=== PATIENT | male | born 1950 | race Caucasian/White ===

== ENCOUNTER 2016-10-24 10:15 | Emergency (ER) | payer MEDICARE, OTHER ==
[~2016-10-24] VITALS: Ht 177.8 cm; Wt 85.5 kg
[2016-10-24 10:21] VITALS: BP 211/103; PULSE 69; RESP 20; O2SAT 99
--- NOTE | 2016-10-24 10:37 | ED.REPORT ---
HPI-Extremity Problem Lower Date of Service Oct 24, 2016 ED Provider: Dr. Barnhart Pt is a 66 y/o male w/ a hx of HTN, MS, presenting to the ED c/o LLE swelling onset today. The patient scraped the posterior aspect of his left calf 3 days ago while walking down stairs. He states he does normally have some baseline asymmetrical edema of his leg and wears compression stockings and takes "medications" to decrease some of the edema. Pt denies numbness or weakness, any other complaints/concerns. He hasn't taken his BP meds yet today. Nursing Notes Stated Complaint: CUT TO LEFT LOWER LEG Chief Complaint: Extremity Trauma Nursing Notes Reviewed: Yes Allergies: Coded Allergies: No Known Allergies (Unverified Allergy, Unknown, 10/24/16) Scheduled Cephalexin (Keflex) 500 Mg Capsule 500 MG PO QID General Time Seen by MD: 10:37 Chief Complaint Other (LLE swelling) Hx Obtained From: Patient Arrived By: Walk-in Onset Occurred: 5 - 8 hours ago Symptom Duration: Since onset Severity: Current: No pain currently Severity: Maximum: No pain Similar Sx Previous: No Past Medical History Past Medical History Hypertension MS Past Surgical History None reported Smoking History Former Smoker Social History Alcohol Use: Denies alcohol use Drug Use: Denies drug use Ambulatory Status Independent Review of Systems Musculoskeletal: Reports: Extremity swelling, Denies: Extremity pain Neurologic: Denies: Numbness, Weakness Complete sys rev & neg: except as marked. Physical Exam Initial Vital Signs Vital Signs (First) Date Time Temp Pulse Resp B/P Pulse Ox O2 Delivery O2 Flow Rate FiO2 10/24/16 10:21 36.4 69 20 211/103 99 Room Air Initial VS: Reviewed, Vital signs abnormal Head / Eyes: Atraumatic, Normocephalic ENT: Mucous membranes moist, Conjunctiva normal Neck: Full range of motion Respiratory: Breath sounds normal, Clear to auscultation, No respiratory distress Cardiovascular: Regular rate & rhythm, Heart sounds normal, Intact distal pulses Abdomen / GI: No distention Upper Extremities: Vascular intact, Neuro intact, No swelling Skin: Warm, Dry, No cyanosis Neurologic: Alert, Oriented, Nonfocal Psychiatric: Mood/affect normal, Behavior normal, Normal thought content Lower Extremity / Pelvis / MS: Full range of motion, No deformity, Neurologic intact, Vascular intact, No ligamentous injury, Tendon function NL, Pelvis stable LLE: 2 superficial abrasions to the back of the calf with mild superficial purulent drainage. No erythema, fluctuance, surrounding erythema Ankle / Foot: No deformity, Neurologic intact Re-Eval/Medical Decision Re-Evaluation/Progress : Time of Eval: 10:50 Re-Evaluation/Progress Note: Pt rechecked. Informed pt of plan for discharge. Pt understands and agrees with plan for discharge. F/U instructions and RTER warnings given. All questions addressed. Counseled Regarding: Diagnosis, Need for follow-up, When/why to return to ED Discharge & Departure Impression: Primary Impression: Abrasion Additional Impression: Hypertension Hypertension type: essential hypertension Qualified Code: I10 - Essential ( primary) hypertension Disposition: Home Discharge Condition All VS Reviewed: Yes Condition: Stable Additional Instructions: Take Keflex as prescribed. Follow-up with regular doctor in the next 2 days. Avoid soaking the wound. Keep it clean and covered with antibiotic ointment and a clean bandage. Return to the ER as needed for worsening symptoms. Also your blood pressure was elevated. Be sure to take your blood pressure medication regularly. Referrals: OTHER,PHYSICIAN (PCP) (Family) Scribe Attestation Portions of this note were transcribed by Rl Minaya. I, Dr. Barnhart personally performed the history, physical exam and medical decision-making; I reviewed and confirmed the accuracy of the information in the transcribed note. Noah Barnhart DO Oct 24, 2016 10:37 RL MINAYA Oct 24, 2016 10:44 RL MINAYA Oct 24, 2016 10:44
[2016-10-24] MEDS ORDERED: CEPH-512 PO (10:42)
[2016-10-24 11:30] VITALS: BP 185/90; PULSE 64; RESP 15; O2SAT 99
== END 2016-10-24 11:31 | disposition home or self-care (01) ==
LOC: SED 10:15
DX: S80.812A Abrasion, left lower leg, initial encounter (principal); I10 Essential (primary) hypertension; W22.09XA Striking against other stationary object, initial encounter; Y93.01 Activity, walking, marching and hiking; Y99.8 Other external cause status; Y92.89 Other specified places as the place of occurrence of the external cause; Z87.891 Personal history of nicotine dependence; Z86.69 Personal history of other diseases of the nervous system and sense organs

== ENCOUNTER 2016-10-28 10:39 | Inpatient (IN) | payer MEDICARE, OTHER ==
[~2016-10-28] VITALS: Ht 177.8 cm; Wt 80.4 kg
[~2016-10-28 10:39] MED LIST: CEPH-512 PO
[2016-10-28 10:42] VITALS: BP 178/101; PULSE 63; RESP 16; O2SAT 100
--- NOTE | 2016-10-28 10:54 | ED.REPORT ---
HPI-Extremity Problem Lower Date of Service Oct 28, 2016 ED Provider: Rodolfo Tran Patient is a 66 year old male with a hx of HTN and MS who presents to the ED for evaluation of an abrasion on his left leg onset 4 days ago. Associated symptoms include increasing redness and swelling. He was seen in the department 4 days ago for his injury. The original injury occurred when he turned on his outdoor stairs, scraping his leg. He denies chest pain, SOB, fevers, nausea, vomiting, or any other symptoms. He has been on Amoxicillin and Keflex for 4 days. Nursing Notes Stated Complaint: CUT ON LEFT LEG Chief Complaint: Extremity Trauma Nursing Notes Reviewed: Yes Allergies: Coded Allergies: No Known Allergies (Unverified Allergy, Unknown, 10/28/16) Scheduled Amlodipine (Amlodipine) 10 Mg Tablet 10 MG PO DAILY Atenolol (Atenolol) 100 Mg Tablet 100 MG PO DAILY Baclofen (Baclofen) 10 Mg Tablet 10 MG PO HS Baclofen (Baclofen) 10 Mg Tablet 20 MG PO BIDBL Calcium Carbonate/Vitamin D3 (Calcium 250+D Tablet) 1 Each Tablet 2 EACH PO BID Cephalexin (Cephalexin) 250 Mg Tablet 250 MG PO QID Chlorhexidine Gluconate (Chlorhexidine Gluconate) 473 Ml Mouthwash 1 DOSE S& SPIT DAILY Cholecalciferol (Vitamin D3) (Vitamin D3) 2,000 Unit Capsule 2,000 UNIT PO DAILY Desonide (Desonide Cream) 15 Gm Cream..g. 1 APPLIC TOP DAILY Divalproex ER (Divalproex ER) 500 Mg Tab.er.24h 500 MG PO BID Doxazosin Mesylate (Doxazosin Mesylate) 4 Mg Tablet 4 MG PO HS Interferon Beta-1A (Avonex) 60 Mcg/1 Ml Syringe 125 MCG SC [id number] Lisinopril (Lisinopril) 40 Mg Tablet 40 MG PO DAILY Sennosides (Senna) 8.6 Mg Tablet 8.6 MG PO BID Scheduled PRN Indomethacin (Indomethacin) 25 Mg Capsule 25 MG PO TID PRN PRN gout Sildenafil Citrate (Viagra) 100 Mg Tablet 100 MG PO UD PRN PRN for sexual activity Tolnaftate (Tolnaftate) 1 Gm Powder 1 APPLIC TOP BID PRN PRN rash General Time Seen by MD: 10:54 Chief Complaint Leg injury left Hx Obtained From: Patient Arrived By: Walk-in Onset Occurred: 4 days ago Caused by: Slipped Location: : Leg left Quality: Painful Severity: Current: Moderate Severity: Maximum: Moderate Immunizations: Unknown Recent Healthcare: Recent doctor visit Similar Sx Previous: Yes Past Medical History Past Medical History Hypertension MS BPH gout seizures Reports: Hyperlipidemia Past Surgical History None reported Smoking History Former Smoker Social History Alcohol Use: Denies alcohol use Drug Use: Denies drug use Ambulatory Status Independent Review of Systems Review of Systems Note: +redness Constitutional: Denies: Fever Musculoskeletal: Reports: Extremity pain, Extremity swelling Complete sys rev & neg: except as marked. Respiratory: Denies: Shortness of breath Cardiovascular: Denies: Chest pain GI: Denies: Nausea, Vomiting Physical Exam Initial Vital Signs Vital Signs (First) Date Time Temp Pulse Resp B/P Pulse Ox O2 Delivery O2 Flow Rate FiO2 10/28/16 10:42 36.5 63 16 178/101 100 Room Air Initial VS: Reviewed, Vital signs normal Head / Eyes: Atraumatic, Normocephalic Neck: Full range of motion Respiratory: No respiratory distress Cardiovascular: Intact distal pulses Neurologic: Alert, Oriented, Nonfocal Lower Extremity / Pelvis / MS: Neurologic intact, Vascular intact Left Leg / Calf: Positive: Swelling present... Ankle / Foot: Neurologic intact, Vascular intact Lower Ext Edema: Positive: Left 2+, Pitting Skin: Warm, Dry Rash / Lesion Notes: 2, 1 cm abrasions to the L posterior calf with surrounding, diffuse erythema Interpretation & Diagnostics Lab Results Interpretation Result Diagram: 10/28/16 1145 10/28/16 1145 Test 10/28/16 11:45 White Blood Count 4.2th/mm3 (3.8-10.1) Red Blood Count 4.67mil/mm3 (4.40-5.80) Hemoglobin 14.6g/dL (13.8-17.2) Hematocrit 42.5% (41.0-50.0) Mean Corpuscular Volume 91.0fL (81-100) Mean Corpuscular Hemoglobin 31.3pg (27.0-35.0) Mean Corpuscular Hemoglobin Concent 34.4% (32.0-37.0) Red Cell Distribution Width 12.6% (12.3-15.4) Platelet Count 158bil/L (150-400) Neutrophils (%) (Auto) 66.4% (40-74) Lymphocytes (%) (Auto) 22.8% (14-46) Monocytes (%) (Auto) 8.9% (4-12) Eosinophils (%) (Auto) 1.2% (0-5) Basophils (%) (Auto) 0.2% (0-3) Sodium Level 141mEq/L (134-144) Potassium Level 4.7mEq/L (3.5-5.2) Chloride Level 104mEq/L (97-108) Carbon Dioxide Level 25mmol/L (18-29) Blood Urea Nitrogen 14mg/dL (8-27) Creatinine 0.66mg/dL (0.76-1.27) Estimat Glomerular Filtration Rate 129mL/min (>59) Glucose Level 80mg/dL (60-99) Calcium Level 9.4mg/dL (8.5-10.1) Total Bilirubin 0.3mg/dL (0.0-1.2) Aspartate Amino Transf (AST/SGOT) 15U/L (0-50) Alanine Aminotransferase (ALT/SGPT) 14U/L (0-44) Alkaline Phosphatase 82U/L (25-160) Total Protein 7.7g/dL (6.4-8.4) Albumin 3.8g/dL (3.4-5.0) Procalcitonin 0.03ng/mL (0.00-0.08) Re-Eval/Medical Decision Med Decision/Clinical Course 66-year-old male with left lower extremity swelling and redness 3 days. Ultrasound confirms extensive DVT left lower extremity. It involves the iliac vein. It is obstructive in the common femoral. It extends down the popliteal. Discussed with interventional cardiology will see the patient for possible thrombolysis. Patient was started on a heparin drip. No chest pain or difficulty breathing. Re-Evaluation/Progress : Time of Eval: 12:45 Re-Evaluation/Progress Note: Discussed plan for admission. Patient understands and agrees with plan. All questions addressed at this time. Consultation #1: Referral / Consult Name: Drew Amador MD Consulted With: Cardiology Call Returned at: 12:41 Jewelry Technician: Will see patient Note: Discussed pt's case with Perry's assistants who report he will see the pt. Consultation #2: Referral / Consult Name: Smith Jiménez MD Consulted With: Hospitalist Call Returned at: 13:12 Jewelry Technician: Will see patient, Agrees with eval, Agrees with plan, Accepts admit Note: Discussed pt's case. Accepts admit. Counseled Regarding: Diagnosis, Lab results, Need for admission Discharge & Departure Impression: Primary Impression: DVT (deep venous thrombosis) DVT location: lower extremity Affected thrombotic vein of extremity: unspecified vein of extremity Laterality: left Chronicity: acute Qualified Code: I82.402 - Acute embolism and thrombosis of unspecified deep veins of left lower extremity Additional Impression: Cellulitis Site of cellulitis: extremity Site of cellulitis of extremity: lower extremity Laterality: left Qualified Code: L03.116 - Cellulitis of left lower limb Disposition: ADMITTED TO HOSPITAL Discharge Condition All VS Reviewed: Yes Condition: Stable Referrals: [facility] Crit Care Except Billable Proc Time Spent: 75-104 minutes (80) Services Performed: Patient management by me, Time spent at bedside, Reviewing test results, Reviewing imaging, Discussing patient care, Documentation in record Critical Care Notes: 80 minutes Primitivoibe Attestation Portions of this note were transcribed by Carly Dickey. I, Dr. Tran personally performed the history, physical exam and medical decision-making; I reviewed and confirmed the accuracy of the information in the transcribed note. Signed by: Spencer Main, 10/28/16 copies to: [employer] oRdolfo Tran MD Oct 28, 2016 10:54 CARLY DICKEY Oct 28, 2016 11:40
[2016-10-28 11:55] LABS: BASOPHILS % (AUTO) 0.2 % (0-3); EOSINOPHILS % (AUTO) 1.2 % (0-5); MONOCYTES % (AUTO) 8.9 % (4-12); Mean Corpuscular Hemoglobin 31.3 pg (27.0-35.0); NEUTROPHILS % (AUTO) 66.4 % (40-74); Platelet Count 158 bil/L (150-400)
[2016-10-28] MEDS ORDERED: Alum-Mag Hydrox-Simeth 30 mL Suspension PO PRN ×2 (13:15→13:50)
[2016-10-28] MEDS ORDERED: Heparin 5,000 Unit/mL Inj IVPUSH ONE (13:15)
[2016-10-28] MEDS ORDERED: Ondansetron 2 mg/mL 2 mL Inj IVPUSH PRN ×2 (13:15→13:50)
[2016-10-28] MEDS ORDERED: Heparin 25K Unit/500mL 0.45 NS 25,000 UNIT in IV Premix 1 EACH IV ONE (13:15)
[2016-10-28] MEDS ORDERED: Vancomycin Dose per Pharmacist XX ONE (13:20)
[2016-10-28] MEDS ORDERED: AMLO10TA3 PO (13:21)
[2016-10-28] MEDS ORDERED: BACL10TA PO ×2 (13:21)
[2016-10-28] MEDS ORDERED: ATEN100T PO (13:21)
[2016-10-28] MEDS ORDERED: Vancomycin Inj 1,750 MG in 0.9% Sodium Chloride 500 ML IV ONE (13:28)
[2016-10-28] MEDS ORDERED: TOLN1POW TOP (13:30)
[2016-10-28] MEDS ORDERED: DOXA4TAB3 PO (13:30)
[2016-10-28] MEDS ORDERED: INDO25CA PO (13:30)
[2016-10-28] MEDS ORDERED: CALC-235 PO (13:30)
[2016-10-28] MEDS ORDERED: LISI40TA PO (13:30)
[2016-10-28] MEDS ORDERED: CHOL200047 PO (13:30)
[2016-10-28] MEDS ORDERED: DESO15CR25 TOP (13:30)
[2016-10-28] MEDS ORDERED: CHLO473M13 S&SPIT (13:30)
[2016-10-28] MEDS ORDERED: INTE30SY SC (13:30)
[2016-10-28] MEDS ORDERED: SENN-133 PO (13:42)
[2016-10-28] MEDS ORDERED: SILD100T PO (13:42)
[2016-10-28] MEDS ORDERED: CEPH250T PO (13:46)
[2016-10-28] MEDS ORDERED: fentaNYL-PF 50 mCg/mL 2 mL Inj IV PRN (13:50)
[2016-10-28] MEDS ORDERED: Polyethylene Glycol (PEG) 17 Gm Powder PO PRN (13:50)
[2016-10-28] MEDS ORDERED: Heparin 5,000 Unit/mL Inj IVPUSH PRN (13:50)
[2016-10-28 14:23] VITALS: BP 156/67; PULSE 73; RESP 20; O2SAT 98
[2016-10-28 14:26] LABS: APPEARANCE,URINE HAZY (CLEAR,HAZY); COLOR,URINE STRAW (YELLOW); OCCULT BLOOD,URINE NEGATIVE (NEGATIVE); PH,URINE 7.5 (5.0-8.0); UROBILINOGEN,URINE NORMAL (NORMAL)
--- NOTE | 2016-10-28 14:46 | NUR ---
Admit nurse note Admission assessment completed in the ER. Pt. c/o irritation around lesions on his posterior lower left calf. The dressing he came in with was removed by ER staff and the lesion has been left open to air, causing concern for the pt. community dietitian in to assess pt. [facility] history obtained via [facility]; however, it is unclear whether pt. is taking his depakote anymore. [facility] and also asked for living [facility]. NKA verified. Report called to Luda Edwards.
[2016-10-28 14:53] VITALS: BP 154/80; PULSE 64; RESP 16; O2SAT 96
[2016-10-28 15:00] VITALS: PULSE 65
--- NOTE | 2016-10-28 15:10 | NUR ---
Verbal Education Pt. states he cannot read anymore due to effects of MS and would benefit from verbal instruction. He lives alone and does not have anybody living with him or caring for him to read instructions for him.
[2016-10-28] MEDS ORDERED: DIVA500T14 PO (15:12)
--- NOTE | 2016-10-28 15:52 | DRSVH ---
PROCEDURE: US VEINOUS LEG DUPLEX UNILATERAL, LEFT INDICATIONS: r/o dvt LLE TECHNIQUE: Real-time imaging, as well as color and pulse Doppler interrogation, were performed of the lower extr emity deep veins from the inguinal ligament to the popliteal fossa. COMPARISON: None. FINDINGS: Extensive occlusive left lower extremity deep venous thrombosis present extending from the iliac vein through the distal superficial femoral vein. Trace flow seen within the popliteal vein. One of the paired posterior tibial veins is patent. IMPRESSION: Extensive occlusive left lower extremity deep venous thrombosis as above. Dr. Jeffery Cabrera given results by the assembly inspector at 1300 hrs. 10/28/2016. Dictated by: Mj FELIX Interpreted: Hope Connelly MD on 10/28/2016 at 13:31 Approved by: Hope Connelly M.D. on 10/28/2016 at 15:50
--- NOTE | 2016-10-28 16:47 | PCM.HPMED ---
Subjective Date of Service Oct 28, 2016 Primary Provider: Admitting Physician: Smith Jiménez MD Primary Care Physician: [facility] Attending Physician: Smith Jiménez MD Admit Status: From the Emergency Department Chief Complaint: Leg swelling History of Present Illness: Bruno Kohler is a 66-year-old man with past medical history significant for MS, hypertension and hyperlipidemia who presents with acute left leg swelling. The patient states that he was at his normal [place] appointment for his regular biweekly injection of Avonex for his multiple sclerosis when his nurse noticed his swollen left leg and asked him to come to the [facility]. The patient states that approximately 1 week ago he scraped the back of his leg however he had noticed no pain, drainage or any other concerning issues. The patient states that approximately 10 days ago he went on a long drive through the [facility] looking for wildlife where he was in the car all day long. The patient denies any recent surgical history. The patient has never had a blood clot before. The patient denies any fever or chills, worsening left leg pain, changing sensation, decreased weakness in his left leg. The patient was recently started on Keflex for what was initially thought to be cellulitis due to the overlying redness and warmth. The patient states that his lower extremities at baseline have decreased sensation with decreased strength and ability to ambulate due to his MS. His MS is also affected his speech. Review of Systems: A comprehensive review of systems was obtained and all are negative except for what is included in the history of present illness. Allergies Coded Allergies: No Known Allergies (Unverified Allergy, Unknown, 10/28/16) Home Medications Amlodipine 10 MG PO DAILY Atenolol 100 MG PO DAILY Baclofen 10 MG PO HS Baclofen 20 MG PO BIDBL Calcium Carbonate/Vitamin D3 2 EACH PO BID Cephalexin 250 MG PO QID Chlorhexidine Gluconate 1 DOSE S&SPIT DAILY Cholecalciferol 2,000 UNIT PO DAILY Desonide 1 APPLIC TOP DAILY Divalproex ER 500 MG PO BID Doxazosin Mesylate 4 MG PO HS Interferon Beta-1A 125 MCG SC [id number] Lisinopril 40 MG PO DAILY Sennosides 8.6 MG PO BID Indomethacin 25 MG PO TID PRN PRN gout Sildenafil Citrate 100 MG PO PRN for sexual activity Tolnaftate 1 APPLIC TOP BID PRN rash PMH Hypertension Multiple sclerosis Benign prostatic hypertrophy Gout Hyperlipidemia History of seizures in teens and early 20s none for over 40 years Surgical History Bilateral cataracts Broken left leg no metal hardware required Family History Father at 63 years old from a heart attack Mother is alive at 84 years old reportedly healthy Brother had peripheral arterial disease in his 60s No family history of cancer Social History Occupation: retired due to MS Hx Alcohol Use: Yes (1 beer) Hx Substance Use: Yes (marijuana daily) Hx Tobacco Use: Yes Smoking Status: Former Smoker Years of Smokin Living Arrangement: Alone Exam Vital Signs Vital Sign - Last Date Time Temp Pulse Resp B/P Pulse Ox O2 Delivery O2 Flow Rate FiO2 10/28/16 15:00 65 10/28/16 14:53 36.5 16 154/80 96 Room Air Exam General: Normal body habitus middle-aged man in no acute distress lying comfortably in bed alert and oriented Eyes: Pupils equal round and reactive to light, extraocular motion intact, anicteric sclera, noninjected conjunctiva HENT: Normocephalic atraumatic, moist mucous membranes without central cyanosis , oropharynx clear without purulent exudate or cobblestoning mucosa Neck: Supple, trachea midline, without thyromegaly or JVD Cardiovascular: Regular rate and regular rhythm, no S3-S4, without murmurs rubs or gallops noted Lungs: Clear to auscultation bilaterally without wheezing rales or rhonchi Abdomen: Soft, nontender, nondistended, tympanic to percussion, normal active bowel sounds, without organomegaly Extremities: Left lower extremity is notably enlarged with gross moderate pitting edema as well as increased warmth and erythema, pulses intact and posterior tibialis and dorsalis pedis, right lower extremity without pitting edema or skin color changes : No Cortez catheter in place Skin: Warm and dry, left lower posterior extremity has 2 ulcerations the larger being approximately 2 cm without purulent drainage or fluctuance Neuro: Nonfocal neurologic exam, sensation intact in extremities Psych: Normal mood and affect Lab and Diagnostics Result Diagram: 10/28/16 1145 10/28/16 1145 X-Rays, CTs and MRIs US VEINOUS LEG DUPLEX UNILATERAL, LEFT IMPRESSION: Extensive occlusive left lower extremity deep venous thrombosis as above. Dr. Jeffery Cabrera given results by the senior ui software engineer at 1300 hrs. 10/28/2016. Approved by: Hope Connelly M.D. on 10/28/2016 at 15:50 Assessment & Plan Bruno Kohler is a 66-year-old man with past medical history significant for MS, hypertension and hyperlipidemia who presents with acute left leg swelling. Acute left leg deep vein thromboses - Patient describes an all day road trip through the [facility] 10 days ago - Denies any family history of DVTs, his brother has a history of PAD - Extensive occlusive left lower extremity deep venous thrombosis present extending from the iliac vein through the distal superficial femoral vein. - Heparin drip initiated in the ED - This case was discussed extensively with interventionalist Dr. Amador will take the patient for EKOS procedure in the morning - Vicodin available when necessary for pain - Nothing by mouth after midnight for because procedure Acute left leg abrasion - Patient describes scraping the back of his leg in his house approximately 1 week ago - Patient denies any fever or chills - Patient was initially started on vancomycin in the ED - White blood cell count of 4.2 with negative pro-calcitonin and consistent with infection - Vancomycin will be discontinued due to negative white blood cell count and pro -calcitonin and DVT to explain swelling and erythema, likely delayed healing due to DVT - Wound care consult placed - Bactroban available Chronic hypertension - Patient to be started on his home medications including amlodipine and atenolol - Currently holding lisinopril given likely contrast necessary for EKOS procedure Chronic benign prostatic hypertrophy - Restart patient's home doxazosin Chronic multiple sclerosis - Continue patient's baclofen - Patient may resume his Avonex [facility] infusions on discharge Chronic gout - Patient describes a recent left lower extremity flare - Holding indomethacin given likely contrast necessary for any gross procedure - Vicodin available GI prophylaxis: Famotidine CODE STATUS is full The patient is admitted to inpatient status given presenting symptoms, likely diagnosis, possible complications, and required treatment expected length of stay is greater than 2 midnights. Pain Evaluation: Adequate Pain Control GI Prophylaxis: H2 vonnie VTE Prophylaxis Indicated: Meets Criteria for Anticoag Therapy (heparin drip) VTE Prophylaxis: Other Resuscitation Status: CPR: Attempt Resuscitation Attending Statement The patient was seen and examined together with Dr. Nguyễn on 10/28/2016 and I agree with the history, exam and plan as outlined in the note above. . Rufus Nguyễn DO Oct 28, 2016 16:47 Smith Jiménez MD Oct 30, 2016 17:34
--- NOTE | 2016-10-28 18:00 | NUR ---
CCU to PCC Pt transferred to [facility], report taken from Luda Gilman. Care plan on board, pt aware of NPO after midnight, VSS, family at bedside. Dinner ordered. Care continues.
[2016-10-28] MEDS: HYDROcodone-APAP 5-325 mg Tablet PO PRN (18:26)
--- NOTE | 2016-10-28 18:41 | NUR ---
Memory Pt states he has "memory deficits due to MS", apologizes when he forgets. Pt appropriate with care, pt also states he "often times pauses while searching for words". Per family pt gets frustrated with self when people fill in the gap. Pt appreciates notes on white board for reminders. Care continues.
--- NOTE | 2016-10-28 18:45 | NUR ---
Wound Care Wound orders received patient seen in ED room D prior to his transfer to [facility]. Admitted with cellulitis of left leg has been treated by [facility] for care of his left leg ulcers and MS Patient presents with two likely venous stasis ulcers at the posterior left leg both measuring approximately 3cm w x 2 cm L x 0.3 cm D, appears to have had an alginate dressing on at admit which shows no drainage on it whatsoever, wound beds are 75% fibrinous and there is no undermining or tunneling noted. Of note patient appears to have been treated for athletes foot on his left with an unknown powder caked between his toes, this was investigated and no fissures that might act as a nidus for his cellulitis could be identified. Skin is markedly hyperkeratotic at his arch, met heads plantarly and his web spaces. Recommend mepilex foam dressings for now over his posterior calf ulcers, will get him into some kind of compression tomorrow like a tubigrip or unna wrap to treat his stasis disease and help to progress his ulcers towards healing.
[2016-10-28 20:01] VITALS: BP 124/74; PULSE 71; RESP 17; O2SAT 97
[2016-10-28] MEDS: Divalproex (QD) 500 mg ER24 Tablet PO SCH (20:38)
[2016-10-28] MEDS: Mupirocin 2% 22 Gm Ointment TOPICAL SCH (20:41)
[2016-10-28 23:28] VITALS: BP 115/70; PULSE 60; RESP 20; O2SAT 97
[2016-10-29] VITALS (16 sets, daily range): BP systolic 106–138; BP diastolic 47–86; PULSE 42–68; RESP 10–20; O2SAT 96–99
[2016-10-29] MEDS: HYDROcodone-APAP 5-325 mg Tablet PO PRN ×3 (03:01→21:00)
--- NOTE | 2016-10-29 03:52 | NUR ---
Pain Pt slept until 0300 and c/o left lower leg pain 5/10. Pt given 1 tab of hydrocodone and upon reassessment pain had decreased to 1/10. Left leg is red and edematous with 2+ pitting edema in ankle and 3+ in lower leg. Pulse weak but palpable. Heparin gtt therapeutic. VSS. Will continue to monitor.
[2016-10-29] MEDS: Heparin 25K Unit/500mL 0.45 NS 25,000 UNIT in IV Premix 1 EACH IV SCH (06:13)
[2016-10-29 07:42] LABS: BASOPHILS % (AUTO) 0.6 % (0-3); MONOCYTES % (AUTO) 11.2 % (4-12); Mean Corpuscular Hemoglobin 31.3 pg (27.0-35.0); Mean Corpuscular Volume 92.3 fL (81-100); NEUTROPHILS % (AUTO) 57.5 % (40-74); Platelet Count 166 bil/L (150-400)
[2016-10-29] MEDS ORDERED: Heparin 1,000 Units/500 mL NS Premix IV ONE (08:23)
[2016-10-29] MEDS: Mupirocin 2% 22 Gm Ointment TOPICAL SCH ×2 (08:30→20:30)
[2016-10-29] MEDS ORDERED: Heparin 10,000 Unit/1,000 mL NS Premix IV ONE (08:34)
[2016-10-29] MEDS ORDERED: fentaNYL-PF 50 mCg/mL 2 mL Inj ONE ×2 (09:31→10:58)
[2016-10-29] MEDS ORDERED: Heparin 1,000 Unit/mL 10 mL Inj ONE (09:40)
[2016-10-29] MEDS ORDERED: Alteplase (Cathflo) Inj 12 MG in 0.9% Sodium Chloride 250 ML IV SCH (10:00)
--- NOTE | 2016-10-29 11:11 | NUR ---
EKOS Pt off floor to rn lab for for EKOS at approximately 0915. Pt family notified. Report given to Diandra Palafox RN.
--- NOTE | 2016-10-29 11:47 | NUR ---
Spoke with Mally at [facility] in [place] and this patient is 80% connected but not PNT , patient also has [place] MCR and part D MCR. Updated RECYCLING WORKER
[2016-10-29] MEDS ORDERED: 0.9% Sodium Chloride 400 ML (4 HRS) IV ONE (12:00)
[2016-10-29] MEDS ORDERED: Atropine 1 mg/10 mL (Code) Syringe IVPUSH PRN (12:00)
[2016-10-29] MEDS ORDERED: Sodium Chloride LOK Flush 10 mL Syringe IVFLUSH PRN (12:00)
[2016-10-29] MEDS ORDERED: Ondansetron 2 mg/mL 2 mL Inj IVPUSH PRN (12:00)
[2016-10-29] MEDS ORDERED: 0.9% Sodium Chloride 250 ML BOLUS IV PRN (12:00)
[2016-10-29] MEDS: Divalproex (QD) 500 mg ER24 Tablet PO SCH (12:34)
--- NOTE | 2016-10-29 13:31 | PCM.PNMED ---
Subjective Date of Service Oct 29, 2016 Subjective Bruno Kohler is a 66-year-old man with past medical history significant for MS, hypertension and hyperlipidemia who presents with acute left leg swelling. Today, patient notes that he feels generally well. He is not complaining of any pain in his lower extremities. However, he does note pain with palpation of his left lower extremity. There were no acute events overnight. On ROS, patient denies headaches, visual changes, chest pain, SOB, nausea, vomiting, abdominal pain, and dysuria. Exam Vital Signs Vital Sign - Last Date Time Temp Pulse Resp B/P Pulse Ox O2 Delivery O2 Flow Rate FiO2 10/29/16 05:20 56 10/29/16 02:53 36.7 19 131/76 99 Room Air Intake and Output 10/28/16 10/28/16 10/29/16 Cumulative From/Thru 14:59 22:59 06:59 10/28/16 10:42 - 10/29/16 06:02 Intake Total 0 ml 425 ml 425 ml Output Total 850 ml 500 ml 1350 ml Balance -850 ml -75 ml -925 ml Intake Oral 0 ml 0 ml 0 ml IV Total 425 ml 425 ml Output Urine Total 850 ml 500 ml 1350 ml # Bowel Movements 0 0 Exam General: Patient sitting comfortably at bedside, AAOX3, not in acute distress, cooperative and pleasant. HEENT: head normocephalic and atraumatic, PERRLA, EOMI, no scleral icterus, noninjected conjunctiva Neck: neck supple, non-tender, no lymphadenopathy, trachea midline, no JVD CV: regular rate and rhythm, s1 and s2 heard, no murmur, radial pulses and pedal pulses 2+ and equal bilaterally, no rubs or gallops Lungs: Clear to auscultation bilaterally, no wheezes, rales or rhonchi, no increased work of breathing Abdomen: normoactive bowel sounds on 4Q, soft, non-distended, non-tender to palpation, no organomegally, Skin: warm and dry, left lower extremity ulceration on the posterior aspect that is bandaged Extremities: Left lower extremity erythematous with moderate pitting edema. Notably enlarged and warmer from the feet extending up to the groin, compared to the right LE. left LE is tender to palpation : no dunne Neuro: Grossly neurologically intact, cranial nerves II through XII intact, sensation intact in extremities Psych: Normal mood and affect IVs and Medications Medications Reviewed: Medications were reviewed in detail Medications high risk medications include heparin drip Lab and Diagnostics Result Diagram: 10/29/16 0733 10/29/1633 X-Rays, CTs and MRIs US VEINOUS LEG DUPLEX UNILATERAL, LEFT IMPRESSION: Extensive occlusive left lower extremity deep venous thrombosis as above. Dr. Jeffery Cabrera given results by the tosser at 1300 hrs. 10/28/2016. Approved by: Hope Connelly M.D. on 10/28/2016 at 15:50 Assessment & Plan Bruno Kohler is a 66-year-old man with past medical history significant for MS, hypertension and hyperlipidemia who presents with acute left leg swelling. Per cardiology, EKOS procedure was unsuccessful and patient will need to remain on anticoagulation. Acute left leg deep vein thromboses - Patient describes an all day road trip through the [facility] 10 days ago - Denies any family history of DVTs, his brother has a history of PAD - Extensive occlusive left lower extremity deep venous thrombosis present extending from the iliac vein through the distal superficial femoral vein. - Heparin drip initiated in the ED. Continue - This case was discussed extensively with interventionalist Dr. Amador - patient underwent EKOS procedure in the morning, however, was unsuccessful. It appears that the clot has been there chronically - Vicodin available when necessary for pain Acute left leg abrasion - Patient describes scraping the back of his leg in his house approximately 1 week ago - Patient denies any fever or chills - Patient was initially started on vancomycin in the ED - On admit: White blood cell count of 4.2 with negative pro-calcitonin inconsistent with infection - Vancomycin will be discontinued due to negative white blood cell count and pro -calcitonin and DVT to explain swelling and erythema, likely delayed healing due to DVT - Wound care consult placed - Bactroban available Chronic hypertension - Patient to be started on his home medications including amlodipine and atenolol - Held lisinopril given likely contrast necessary for EKOS procedure -resume now Chronic benign prostatic hypertrophy - Restart patient's home doxazosin Chronic multiple sclerosis - Continue patient's baclofen - Patient may resume his Avonex [facility] infusions on discharge Chronic gout - Patient describes a recent left lower extremity flare - Holding indomethacin given likely contrast necessary for any gross procedure - Vicodin available GI prophylaxis: Famotidine CODE STATUS is full GI Prophylaxis: H2 vonnie VTE Prophylaxis: Other Resuscitation Status: CPR: Attempt Resuscitation Attending Statement The patient was seen and examined together with Dr. Vela on 10/29/2016 and I agree with the history, exam and plan as outlined in the note above. . Stacy Vela DO Oct 29, 2016 10:16 Smith Jiménez MD Oct 30, 2016 17:34
--- NOTE | 2016-10-29 13:56 | NUR ---
Pt returned from technology lab teacher at approx 1155hr Pt had attempted EKOS procedure which was not successful. He has a art puncture site left popliteal artery site. he has gauze over the puncture site and has scant ooze initially but nothing since then. PT and DP pulses dopplerable. Pt continues to have some pitting edema in that leg. IV NS at 100cc per hour as ordered. VS are stable. Pt took diet well. Pt has voided post procedure. spoke with pt and his brother and explained results and plan of care.
--- NOTE | 2016-10-29 14:15 | DRSVH ---
PROCEDURE: US GUIDE FOR VASCULAR ACCESS INDICATIONS: BIOMATHEMATICIAN COMPARISON: [facility], US, US VENOUS LEG DPLX UNI LT, 10/28/2016, 11:59. FINDINGS: Real-time sonography was utilized to assist in needle guidance into the left popliteal whi ch was unsuccessful. IMPRESSION: Sonography utilized to access the left popliteal vein for intervention which was not suc cessful. Dictated by: Mj Marvin [facility] Interpreted: Augusto George MD on 10/29/2016 at 11:54 Approved by: Augusto George M.D. on 10/29/2016 at 14:13
--- NOTE | 2016-10-29 15:12 | NUR ---
Social Work: Initial Assessment / Multidisciplinary Rounds Data: See initial assessment. Patient is a 66 year old male who was admitted on 10/28/2016 for DVT of left leg per H&P. Patient's insurance is [facility] and [email or web address]. Patient's PCP is the [facility]. EMR reviewed. SW met with patient to discuss discharge planning. SW role explained. Patient states that he resides alone in a home located in [place]. Patient considers his mother and brother to be good sources of support. Patient confirms that his DPOA is his son Naveen Kohler and that AD have been completed on his behalf. Patient confirms that he is I at baseline with all ADLs and care needs. Patient confirms that he drives via POV. Patient denies having a hx of home health services or SNF. Upon discharge, patient states that he will transport himself home via POV. SW provided patient with a discharge planning checklist and encouraged to call with any questions or concerns. Phone number provided. Patient was discussed in morning rounds. No concerns were noted from staff or MD. SW will continue to follow. Assessment: Patient is from home and will likely discharge home with no needs. Plan: Patient will likely discharge home when medically stable. Transportation will be provided by patient. SW will continue to follow for needs. CATE Guajardo Addendum: 10/29/16 at 1524 by MOSES JO SS Amended: Links added.
--- NOTE | 2016-10-29 16:10 | NUR ---
Resumed care Resumed care of pt at approximately 1410. Pt left popliteal intact with no signs of hematoma or bleeding. Distal pulses double checked at transfer of care, dopplerable. Care continues.
--- NOTE | 2016-10-29 16:20 | NUR ---
Heparin/DVT Pt restarted on Heparin/DVT protocol per MD. Pt weight 89.9 kg, Heparin running at 18 units/kg/hr. Double RN check with Reny Eisenberg and Corinne Britt. Care continues.
--- NOTE | 2016-10-29 16:23 | NUR ---
spiritual care: pt request conversational visit with pt and brother. both talked of interests and reported coping with health conditions. agreeable to my offer to contact pt's pants busheler, Nick Smith. Message relayed.
[2016-10-29] MEDS ORDERED: APIX5TAB PO (16:35)
--- NOTE | 2016-10-29 16:36 | NUR ---
Inpatient Wound Nurse Patient seen for follow up of LLE venous stasis ulcers. Two wounds noted on L posterior calf, each measuring 1 cm x 1 cm, draining minimal serosanguinous drainage. Wound bed dark pink with very thin pattern of zayda, light yellow slough in scattered pattern. Edges well-adhered, narrow (0.1 cm) halo of erythema. Patient stated that pain was most prominent in calf. No evidence of tissue infection, though entire limb between knee and ankle is erythemic and tender to touch. No weeping, no moisture, no skin breaks other than venous stasis ulcers and popliteal puncture site. Feet warm and dry, patient identified RN's hand contact to plantar surface, no significant change in sensation. Dr. Amador was phoned directly by this CWON RN and intervention of Unna wrap was reviewed, to which he was agreeable. Wounds were cleansed and blotted dry. Small piece of Aquacel Extra Ag cut to fit within wound margins and placed over wound bed. LLE was wrapped with Unna wrap from proximal toes to tibial tuberosity, followed by Kerlix and Coban. Coban was applied with essentially no-low stretch, resulting in very minimal compression. Puncture site in popliteal space (covered with gauze and Tegaderm) was left out of wrap for access and further assessment. Wrap may remain in place up to five days. Patient stated that wrap was comfortable. He should follow up with [facility] or Wound Center after discharge if [facility] MD agreeable. Addendum: 10/29/16 at 1710 by SCOTT COLÓN RN Patient complained of pain to primary RN and CWON removed wrap about 45 minutes after it was applied. Patient stated that pain was instantly improved. RLE was cleansed of calazime and Aquacel Extra Ag was cut to fit and placed within wound bed. Mepilex bordered 4x4 with silicone facing was placed on diagonal to encompass both posterior calf wounds. Patient instructed to follow up with PCP after discharge regarding venous ulcers.
--- NOTE | 2016-10-29 16:45 | NUR ---
Pt recovered in CCU, now PCC status again Pt has had stable VS. Left popliteal site is intact with no evidence of bleeding or hematoma. distal pulses dopplerable. Wound care to re dress pt's leg this afternoon. Heparin to re start per .
--- NOTE | 2016-10-29 18:11 | CONS ---
[address] [address] CONSULTATION REPORT PATIENT: FRANCOIS MOODY : 1950 MR#: [id number] ADMIT: 10/28/2016 JOB ID: [id number] DATE OF SERVICE: 10/29/2016 CHIEF COMPLAINT: Leg swelling. HISTORY OF PRESENT ILLNESS: I was asked to see this 66-year-old gentleman with history of acute leg swelling. The patient states that he [facility] Avonex for multiple sclerosis. He was noted to have a swollen left leg and was advised to come to the emergency department at [facility]. An ultrasound there demonstrated extensive DVT. The patient was admitted to the hospital and I was asked to see him in consultation for consideration of catheter directed thrombolysis. The patient states that he has had a nonhealing ulcer on his left calf for approximately a month and a half. He has been treated with antibiotics, but his leg he states was never this swollen. It has gotten worse. He also states about 10 days ago he went to [employer] [place] with his friend. It was not a very long car trip. The patient denies any prior history of DVT. He denies any prior history of immobilization in the recent past. He is currently not complaining of any significant pain in his legs. PAST MEDICAL HISTORY: Significant for hypertension, multiple sclerosis, BPH, gout, dyslipidemia, cataracts. MEDICATIONS AT HOME: Amlodipine, atenolol, baclofen, cephalexin which was started recently, divalproex, Doxil, Zosyn, interferon, lisinopril, indomethacin, Viagra. He is also using tolnaftate for his rash. FAMILY HISTORY: His father at 63 from an VT. Brother has peripheral vascular disease and the brother is in his 60s. PERSONAL HISTORY: He is retired. He drinks alcohol occasionally and smokes marijuana occasionally. He is a former smoker. REVIEW OF SYSTEMS: Comprehensive review of system was done. Pertinent negatives are no GI or bleeding. No prior strokes. He is denying any upcoming surgeries. He is denying any change in his bowel habits. He has no constitutional symptoms. PHYSICAL EXAMINATION: Pulse 80, blood pressure 154/70. Neck: Supple. No JVD. Chest: Clear. Heart sounds: S1, S2, regular. No murmurs, no gallops. Abdomen: Soft, nondistended. No organomegaly. Extremities: Left leg is markedly swollen. There is an ulcer on the left calf which is in a dressing. There is erythema of the left leg that extends up into the thigh. The thigh is also edematous and swollen compared to the right thigh. There is minimal tenderness. No cords were palpated. Femoral pulses were palpable. SUBSTATION OPERATOR: Alert and oriented x3. Psychiatric: Mood and affect appropriate. LABORATORY DATA: Creatinine is normal at 0.66. White count is 4.2. Venous Doppler was reviewed and it shows extensive left-sided DVT. ASSESSMENT AND PLAN: This 66-year-old gentleman presents with extensive deep venous thrombosis (DVT). I have discussed the options of continued anticoagulation versus catheter directed thrombolysis. I have discussed the pros and cons, especially that of intracranial hemorrhage. The patient is agreeable to proceed ahead with catheter directed thrombolysis. Given the slowly healing ulcer on his left calf I would also recommend that arterial duplex studies be done to rule out any underlying peripheral vascular disease. The location of his ulcer, however, is not compatible with arterial ulceration. The differential diagnosis would include venous ulceration as well. I thank you for letting me be involved in this gentleman's care. I would be happy to follow this patient along with you. He is scheduled for EKOS catheter-directed thrombolysis later tonight.
--- NOTE | 2016-10-29 18:19 | NUR ---
Wound care Pt c/o pain on left leg post wound care wrap. finance admin Shannen notified. Wrap removed. Pt states no pain at this time. Care continues.
--- NOTE | 2016-10-29 19:42 | DI96 ---
[address] [address] PERIPHERAL CATHETERIZATION/INTERVENTION REPORT PATIENT: FRANCOIS MOODY : 1950 MR#: [id number] ADMIT: 10/28/2016 JOB ID: [id number] DATE OF PROCEDURE: 10/29/2016 PROCEDURE: Attempted catheter directed thrombolysis of the left lower extremity. INDICATION: Extensive DVT. PROCEDURAL DETAILS: The reader is referred to the procedure log for complete details as are the coders. Briefly, this procedure was attempted using ultrasound guidance to obtain access into the left popliteal vein. Despite ultrasound access, we could not get into the popliteal vein. We did get into the popliteal artery. The micro puncture inner dilator was then left in situ to help guide us towards the vein as it acted as a reference. I was unsuccessful to cannulate the popliteal vein. The popliteal vein is somewhat small and there is no flow on ultrasound. Dr. Bonilla made an attempt to cannulate the popliteal vein as well but he was unsuccessful also. At this point, the impression was that this gentleman has chronic and not acute DVT. It is an organized and hard and we terminated the procedure. The patient is to stay on long-term oral anticoagulation. He will be sent back to his room where hospitalist service will manage him from here on. Cardiology will be available on an as needed basis.
[2016-10-29] MEDS: Divalproex (QD) 250 mg ER24 Tablet PO SCH (21:54)
[2016-10-30] VITALS (9 sets, daily range): BP systolic 127–152; BP diastolic 67–82; PULSE 46–78; RESP 12–16; O2SAT 96–100
[2016-10-30 04:41] LABS: Mean Corpuscular Hemoglobin 31.9 pg (27.0-35.0); Mean Corpuscular Volume 93.3 fL (81-100)
--- NOTE | 2016-10-30 05:52 | NUR ---
Heparin Gtt Patient on heparin gtt, DVT protocol. Currently running at 19 units/kg/hour. No signs of bleeding noted. Next PTT draw scheduled at 1100.
[2016-10-30] MEDS: Heparin 25K Unit/500mL 0.45 NS 25,000 UNIT in IV Premix 1 EACH IV SCH (06:42)
[2016-10-30] MEDS: HYDROcodone-APAP 5-325 mg Tablet PO PRN ×2 (08:19→16:52)
[2016-10-30] MEDS: Divalproex (QD) 250 mg ER24 Tablet PO SCH ×2 (08:20→21:39)
[2016-10-30] MEDS: Mupirocin 2% 22 Gm Ointment TOPICAL SCH ×2 (08:21→21:39)
--- NOTE | 2016-10-30 11:18 | NUR ---
NUTRITION ASSESSMENT: ASSESS: 66 YO male admitted with L. leg DVT and non-healing pressure injury. EKOS x 1 unsuccessful. Wound consult initiated related to LLE venous stasis ulcers. Two wounds noted on L posterior calf, draining minimal serosanguinous drainage. Wound bed dark pink with very thin pattern of zayda, light yellow slough in scattered pattern. Edges well-adhered, narrow halo of erythema. Patient stated that pain was most prominent in calf. No evidence of tissue infection, though entire limb between knee and ankle is erythemic and tender to touch. Code status: DNR / DNI. PMHx: MS, HTN, dyslipidemia, gout. DIET: Heart healthy. PO intake 100% trays. LABS: Reviewed. Cr 0.73. MEDICATIONS: Reviewed. NUTRITION FOCUSED PHYSICAL ASSESSMENT: GI symptoms / stool: No stool reported. Danilo: 20. Skin Integrity: See assessment above. ANTHROPOMETRICS: Current Wt: 82.6 kg BMI: 26.0 kg/m2. Admit weight: 85.45 kg. IBW: 75.0 kg (117% IBW) ESTIMATED NEEDS (WOUNDS, OVERWEIGHT): Calories: 2136 - 2564 kcal (25 - 30 kcal / kg BW) Protein: 103 - 128 g protein (1.2 - 1.5 g / kg BW) NUTRITION DIAGNOSIS: 1)Increased nutrient needs related to LLE venous status skin breakdown, as evidenced by ongoing wound care. INTERVENTION: 1) Will consider adding supplements for wound healing in event PO intake declines. MONITOR/EVALUATE: PO intake, labs, weight, nutritional status. Follow up per moderate nutrition risk guidelines.
--- NOTE | 2016-10-30 13:38 | PCM.PNMED ---
Subjective Date of Service Oct 30, 2016 Subjective Bruno Kohler is a 66-year-old man with past medical history significant for MS, hypertension and hyperlipidemia who presents with acute left leg swelling. Per cardiology, EKOS procedure was unsuccessful and patient will need to remain on anticoagulation for DVT treatment. Today, the patient states that he still has about 4/10 pain of his left lower extremity. He has been elevating his leg overnight and has noticed decreased swelling of the leg. However, the erythema looks about the same still. On review of systems, he denies visual changes, headaches, chest pain, shortness of breath, nausea, vomiting, abdominal pain, and dysuria. There were no acute events overnight. Exam Vital Signs Vital Sign - Last Date Time Temp Pulse Resp B/P Pulse Ox O2 Delivery O2 Flow Rate FiO2 10/30/16 08:36 60 10/30/16 08:00 37.1 12 135/78 98 Room Air Intake and Output 10/29/16 10/29/16 10/30/16 Cumulative From/Thru 15:00 23:00 07:00 10/28/16 10:42 - 10/30/16 06:40 Intake Total 400 ml 1844 ml 2669 ml Output Total 520 ml 1475 ml 3345 ml Balance -120 ml 369 ml -676 ml Intake Oral 400 ml 400 ml 800 ml IV Total 1444 ml 1869 ml Output Urine Total 520 ml 1475 ml 3345 ml # Voids 1 5 6 # Bowel Movements 0 Exam General: Patient sitting comfortably at bedside, AAOX3, not in acute distress, cooperative and pleasant. HEENT: head normocephalic and atraumatic, PERRLA, EOMI, no scleral icterus, noninjected conjunctiva Neck: neck supple, non-tender, no lymphadenopathy, trachea midline, no JVD CV: regular rate and rhythm, s1 and s2 heard, no murmur, radial pulses and pedal pulses 2+ and equal bilaterally, no rubs or gallops Lungs: Clear to auscultation bilaterally, no wheezes, rales or rhonchi, no increased work of breathing Abdomen: normoactive bowel sounds on 4Q, soft, non-distended, non-tender to palpation, no organomegally, Skin: warm and dry, left lower extremity 2 ulcerations on the posterior aspect that is bandaged and draining serosanguineous fluid Extremities: Left lower extremity erythematous with moderate pitting edema. Notably enlarged and warmer from the feet extending up to the groin, compared to the right LE. left LE is tender to palpation, popliteal fossa was the site of catheter insertion for EKOS, bandaged with mild bleeding, no ecchymosis or hematoma noted : no dunne Neuro: Grossly neurologically intact, cranial nerves II through XII intact, sensation intact in extremities Psych: Normal mood and affect IVs and Medications Medications Reviewed: Medications were reviewed in detail Lab and Diagnostics Laboratory Tests Test 10/29/16 15:11 10/29/16 21:54 10/30/16 04:20 10/30/16 11:04 Activated Partial Thromboplast Time 28.5sec (22.8-33.0) 66.0sec (22.8-33.0) 57.6sec (22.8-33.0) 76.9sec (22.8-33.0) White Blood Count 6.4th/mm3 (3.8-10.1) Red Blood Count 4.30mil/mm3 (4.40-5.80) Hemoglobin 13.7g/dL (13.8-17.2) Hematocrit 40.1% (41.0-50.0) Mean Corpuscular Volume 93.3fL (81-100) Mean Corpuscular Hemoglobin 31.9pg (27.0-35.0) Mean Corpuscular Hemoglobin Concent 34.2% (32.0-37.0) Red Cell Distribution Width 12.9% (12.3-15.4) Platelet Count 168bil/L (150-400) Sodium Level 138mEq/L (134-144) Potassium Level 4.5mEq/L (3.5-5.2) Chloride Level 102mEq/L (97-108) Carbon Dioxide Level 18mmol/L (18-29) Blood Urea Nitrogen 15mg/dL (8-27) Creatinine 0.73mg/dL (0.76-1.27) Estimat Glomerular Filtration Rate 115mL/min (>59) Glucose Level 88mg/dL (60-99) Calcium Level 8.6mg/dL (8.5-10.1) Total Bilirubin 0.3mg/dL (0.0-1.2) Aspartate Amino Transf (AST/SGOT) 18U/L (0-50) Alanine Aminotransferase (ALT/SGPT) 15U/L (0-44) Alkaline Phosphatase 79U/L (25-160) Total Protein 6.8g/dL (6.4-8.4) Albumin 3.4g/dL (3.4-5.0) Microbiology 10/28/16 Blood Culture - Preliminary, Resulted NO GROWTH AFTER 24 HOURS Result Diagram: 10/30/16 04210/30/16419 X-Rays, CTs and MRIs US VEINOUS LEG DUPLEX UNILATERAL, LEFT IMPRESSION: Extensive occlusive left lower extremity deep venous thrombosis as above. Dr. Jeffery Cabrera given results by the sock turner at 1300 hrs. 10/28/2016. Approved by: Hope Connelly M.D. on 10/28/2016 at 15:50 Assessment & Plan Bruno Kohler is a 66-year-old man with past medical history significant for MS, hypertension and hyperlipidemia who presents with acute left leg swelling. Per cardiology, EKOS procedure was unsuccessful and patient will need to remain on anticoagulation. The goal for today is to stop heparin, start patient on Eliquis , and encourage patient to ambulate with Physical Therapy. I will start the Eliquis today for DVT treatment. The dose is 10 mg po bid for the first 7 days and then 5 mg po bid thereafter. Per social work, the [facility] Eli[facility]. In order for this medication to be covered, it will have to go through the [place]. I already called the prescription in to [facility]. Social Work states that they will have this prescription transferred and allow it to go through the [facility] on Tuesday so that it will be covered. As a result, if patient is discharged tomorrow morning after receiving the morning 10 mg dose of Eliquis, the hospitalist working on Tuesday10/31/16, will need to write a prescription for just one half day worth of Eliquis, meaning 10 mg po until patient is able to get the full month supply through the [place] on Tuesday. Acute left leg deep vein thromboses - Patient describes an all day road trip through the [facility] 10 days ago - Denies any family history of DVTs, his brother has a history of PAD - Extensive occlusive left lower extremity deep venous thrombosis present extending from the iliac vein through the distal superficial femoral vein. - Heparin drip initiated in the ED. Discontinue heparin today -Start Eliquis 10 mg po bid for the first 7 days and then 5 mg po bid thereafter - This case was discussed extensively with interventionalist Dr. Amador - patient underwent EKOS procedure in the morning, however, was unsuccessful. It appears that the clot is a chronic DVT -patient will need to remain on shoe repairer oral anticoagulation - Vicodin available when necessary for pain Acute left leg abrasion - Patient describes scraping the back of his leg in his house approximately 1 week ago - Patient denies any fever or chills - Patient was initially started on vancomycin in the ED - On admit: White blood cell count of 4.2 with negative pro-calcitonin inconsistent with infection - Vancomycin will be discontinued due to negative white blood cell count and pro -calcitonin and DVT to explain swelling and erythema, likely delayed healing due to DVT - Wound care consult placed. -Patient will need to follow-up with wound care as an outpatient - Bactroban available Chronic hypertension - Patient to be started on his home medications including amlodipine and atenolol - Held lisinopril given likely contrast necessary for EKOS procedure -resume now Chronic benign prostatic hypertrophy - Restart patient's home doxazosin Chronic multiple sclerosis - Continue patient's baclofen - Patient may resume his Avonex [facility] infusions on discharge Chronic gout - Patient describes a recent left lower extremity flare - Holding indomethacin given likely contrast necessary for any gross procedure - Vicodin available GI prophylaxis: Famotidine CODE STATUS is full Disposition: Stopped Heparin drip and started Eliquis. Encourage ambulation with PT. Patient will likely discharge tomorrow. Pain Evaluation: Adequate Pain Control GI Prophylaxis: H2 vonnie VTE Prophylaxis: Other Resuscitation Status: CPR: Attempt Resuscitation Attending Statement The patient was seen and examined together with Dr. Vela on 10/30/2016 and I agree with the history, exam and plan as outlined in the note above. . Stacy Vela DO Oct 30, 2016 13:11 Smith Jiménez MD Oct 30, 2016 17:35
--- NOTE | 2016-10-30 16:56 | NUR ---
Evaluation completed. Please go to "Notes" then click on "Assessments and Notes" (bottom left corner of screen). Then select appropriate discipline tab on top of screen.
--- NOTE | 2016-10-30 19:26 | NUR ---
Activity/heparin Pt. up to bsc independently. PT in to evaluate. Noted that pt. unsteady and off balance. Recommending to have pt be sba. Pt. instructed to call for assistance when out of bed. Heparin has been discontinued; pt has received po eloquist. Pain reported 4-5/10, to left leg. Leg is elevated, vicodin prn given for management. Reported effective for pain control. Tele reading Sinus aashish in the 50s. Report given to Reny to continue care.
[2016-10-31] MEDS: HYDROcodone-APAP 5-325 mg Tablet PO PRN (01:00)
[2016-10-31 02:59] LABS: BASOPHILS % (AUTO) 0.3 % (0-3); EOSINOPHILS % (AUTO) 2.4 % (0-5); MONOCYTES % (AUTO) 10.6 % (4-12); Mean Corpuscular Hemoglobin 31.4 pg (27.0-35.0); Mean Corpuscular Volume 92.4 fL (81-100); NEUTROPHILS % (AUTO) 56.7 % (40-74); Platelet Count 142 bil/L (150-400)
[2016-10-31 03:30] VITALS: BP 165/84; PULSE 54; RESP 16; O2SAT 97
--- NOTE | 2016-10-31 05:57 | NUR ---
Ambulation/Bradycardia/Rest Patient up to bathroom several times with standby assist. Unsteady gait noted, but patient able to maintain adequate balance from bed to bathroom and back. Tele: continues to be sinus aashish, with rates dipping into the 30s while patient is asleep. Patient sleeping soundly for most of the shift. Easily aroused for care.
[2016-10-31 06:04] VITALS: PULSE 56
[2016-10-31 08:30] VITALS: BP 140/80; PULSE 55; RESP 16; O2SAT 98
[2016-10-31] MEDS: Divalproex (QD) 250 mg ER24 Tablet PO SCH (09:00)
[2016-10-31] MEDS: Mupirocin 2% 22 Gm Ointment TOPICAL SCH (09:03)
[2016-10-31 10:03] VITALS: PULSE 53
[2016-10-31 11:46] VITALS: BP 136/77; PULSE 52; RESP 16; O2SAT 99
--- NOTE | 2016-10-31 12:28 | NUR ---
Social Work- Readiness for Discharge/Multidisciplinary Rounds Data: EMR reviewed. Pt is on day 3 of hospitalization. Pt discussed in multidisciplinary rounds, pt is medically stable for discharge today. Per chart review, pt has [facility] A and D. Pt will discharge on Eliquis, will receive coupon for free 30 days. Pt can discuss this medication further with [facility] clinic if there are financial concerns (pt's PCP). Pt has medication coverage through [facility]. Pt to discharge home via POV, no additional d/c needs identified. SW will continue to follow for needs at time of d/c. Assessment: Pt who is independent at baseline with ADLs and self-care Plan: Pt to discharge home via POV, no additional d/c needs identified. SW will continue to follow for needs at time of d/c. CATE Frausto
[2016-10-31] MEDS ORDERED: APIX5TAB PO ×2 (12:33)
--- NOTE | 2016-10-31 12:52 | PCM.DIMED ---
Rufus Nguyễn DO 10/31/16 1252: Discharge Instructions Date of Service Oct 31, 2016 Dates of Hospitalization Oct 28, 2016 at 13:27 Discharge Diagnosis Discharge Diagnosis chronic left leg deep vein thromboses Acute left leg abrasion Chronic hypertension Chronic benign prostatic hypertrophy Chronic multiple sclerosis Chronic gout Medication Instructions Additional med instructions You have been started on a new medication Eliquis, prior to your discharge you have been cleared to received a free 1 month prescription trial of this medication which should cost you nothing up front. You have been given a one time dose of Eliquis 10mg to be taken tonight so that you are covered until you can diamond picker your full month prescription tomorrow from [facility]. Please diamond picker your prescription for this medication from your [facility] in [facility].You will need the following information to get your free month. Eliquis Free Month Trial Card Info ID Number - [id number] Rx BIN - [id number] RX PCN - [id number] Group ID # - [id number] Eliquis may or may not be covered by your [facility] insurance. Your VA physician may decide to change you to another oral anticoagulant medication. You may continue all of your regular home medication except for your indomethacin. Please do not take indomethacin while you are on anticoagulation as this may increase your risk of spontaneous bleeding. You should discuss alternative gout treatments with your primary care physician Test Results Test Results US VEINOUS LEG DUPLEX UNILATERAL, LEFT FINDINGS: Extensive occlusive left lower extremity deep venous thrombosis present extending from the iliac vein through the distal superficial femoral vein. Trace flow seen within the popliteal vein. One of the paired posterior tibial veins is patent. IMPRESSION: Extensive occlusive left lower extremity deep venous thrombosis as above. Approved by: Hope Connelly M.D. on 10/28/2016 at 15:50 Diet Discharge Diet: Heart Healthy Activity Discharge Activity: Limited until seen by PCP Call your provider Call your provider for: Fever or Chills, Shortness of breath, Bleeding, Chest pain, Weakness (unilateral) Patient Instructions Patient Instructions Please take all your medications as prescribed, including the Eliquis 10mg tonight. You need to take medication for anticoagulation for 3-6 months given your DVT. Your [facility] doctor may ultrasound your leg in 3 months to decide if you need to remain on anticoagulation longer. You do not currently have a leg infection but please call you doctor if you notice any signs of infection on your left leg abrasions. Keep track if you notice worsening pain at the sight of your abrasions or if you begin to develop fever or chills as this can be a sign of infection. Make sure to wash the abrasions twice a day with soap and water until they heal. Please call 911 if you develop sudden chest pain or shortness of breath as this can be a sign of a pulmonary emboli which can be a life threatening severe complication to having a DVT. Follow-up plan Follow up with your [place] primary care doctor in 1-2 weeks to discuss this hospitalization. A copy of this hospitalization record will be sent to him for review. Follow-up Provider: [facility] Follow-up with PCP in: 1 week Smith Jiménez MD 11/01/16 1130: Discharge Instructions Attending's Statement The patient was seen and examined together with Dr. Nguyễn on 10/31/2016 and I agree with the history, exam and plan as outlined in the note above. Rufus Nguyễn DO Oct 31, 2016 12:52 Smith Jiménez MD Nov 01, 2016 11:30
--- NOTE | 2016-10-31 14:25 | PCM.DC.MED ---
Discharge Summary Date of Service Oct 31, 2016 Dates of Hospitalization Date of Hospital Admission Oct 28, 2016 at 13:27 Date of Discharge: Oct 31, 2016 Providers: Admitting Physician: Smith Jiménez MD Primary [facility] Physician: [facility] Attending Physician: Smith Jiménez MD Diagnosis at Time of Discharge Diagnosis at Time of Discharge chronic left leg deep vein thromboses Acute left leg abrasion Chronic hypertension Chronic benign prostatic hypertrophy Chronic multiple sclerosis Chronic gout Consultations Interventionalists Procedures XRay, CTs & MRIs US VEINOUS LEG DUPLEX UNILATERAL, LEFT IMPRESSION: Extensive occlusive left lower extremity deep venous thrombosis as above. Dr. Jeffery Cabrera given results by the cheesemaker at 1300 hrs. 10/28/2016. Approved by: Hope Connelly M.D. on 10/28/2016 at 15:50 Brief History Bruno Kohler is a 66-year-old man with past medical history significant for MS, hypertension and hyperlipidemia who presents with acute left leg swelling. The patient states that he was at his normal [place] appointment for his regular biweekly injection of Avonex for his multiple sclerosis when his nurse noticed his swollen left leg and [facility] The patient states that approximately 1 week ago he scraped the back of his leg however he had noticed no pain, drainage or any other concerning issues. The patient states that approximately 10 days ago he went on a long drive [place] [facility] looking [place] where he was in the car all day long. The patient denies any recent surgical history. The patient has never had a blood clot before. The patient denies any fever or chills, worsening left leg pain, changing sensation, decreased weakness in his left leg. The patient was recently started on Keflex for what was initially thought to be cellulitis due to the overlying redness and warmth. The patient states that his lower extremities at baseline have decreased sensation with decreased strength and ability to ambulate due to his MS. His MS is also affected his speech. Hospital Course Chronic left leg deep vein thromboses - Patient describes an all day road trip through the [facility] 10 days ago - Denies any family history of DVTs, his brother has a history of PAD - Extensive occlusive left lower extremity deep venous thrombosis present extending from the iliac vein through the distal superficial femoral vein. - Heparin drip initiated in the ED. Discontinue heparin today, Start Eliquis 10 mg po bid for the first 7 days and then 5 mg po bid thereafter - This case was discussed extensively with interventionalist Dr. Amador as the patient underwent EKOS procedure in the morning, however, was unsuccessful. It appears that the clot is a chronic DVT - patient will need to remain on intermediate school teacher oral anticoagulation and will follow up with [facility] provider, the patient was clear for 1 month of free Eliquis prior to discharge, this may be changed to another novel anticoagulant Acute left leg abrasion - Patient describes scraping the back of his leg in his house approximately 1 week ago - Patient denies any fever or chills - On admit: White blood cell count of 4.2 with negative pro-calcitonin inconsistent with infection - No antibiotics as DVT explained swelling and erythema, likely delayed healing due to DVT Chronic hypertension - Patient to be started on his home medications including amlodipine and atenolol - Held lisinopril given likely contrast necessary for EKOS procedure Chronic benign prostatic hypertrophy - Continue patient's home doxazosin Chronic multiple sclerosis - Continue patient's baclofen - Patient may resume his Avonex [facility] infusions on discharge Chronic gout - Patient describes a recent left lower extremity flare - Holding indomethacin - Advised to follow-up with PCP given risk of GI bleed with chronic indomethacin use while on anticoagulation Exam Vital Signs (Last) Date Time Temp Pulse Resp B/P Pulse Ox O2 Delivery O2 Flow Rate FiO2 10/31/16 11:46 36.9 52 16 136/77 99 Room Air Exam General: Normal body habitus middle-aged man in no acute distress lying comfortably in bed alert and oriented Eyes: Pupils equal round and reactive to light, extraocular motion intact, anicteric sclera, noninjected conjunctiva HENT: Normocephalic atraumatic, moist mucous membranes without central cyanosis , oropharynx clear without purulent exudate or cobblestoning mucosa Neck: Supple, trachea midline, without thyromegaly or JVD Cardiovascular: Regular rate and regular rhythm, no S3-S4, without murmurs rubs or gallops noted Lungs: Clear to auscultation bilaterally without wheezing rales or rhonchi Abdomen: Soft, nontender, nondistended, tympanic to percussion, normal active bowel sounds, without organomegaly Extremities: Left lower extremity is notably enlarged with gross moderate pitting edema as well as increased warmth and erythema, pulses intact and posterior tibialis and dorsalis pedis, right lower extremity without pitting edema or skin color changes : No Cortez catheter in place Skin: Warm and dry, left lower posterior extremity has 2 ulcerations the larger being approximately 2 cm without purulent drainage or fluctuance Neuro: Nonfocal neurologic exam, sensation intact in extremities Psych: Normal mood and affect Test 10/28/16 13:33 10/28/16 14:12 10/29/16 07:33 10/30/16 18:30 Hold Castillo Top Tube Received (Received) Urine Color Straw (YELLOW) Urine Appearance Hazy (CLEAR,HAZY) Urine pH 7.5 (5.0-8.0) Urine Specific Beccaria 1.010 (1.003-1.035) Urine Protein Tracemg/dL (NEG,TRACE) Urine Glucose (UA) Negativemg/dL (NEGATIVE) Urine Ketones Negativemg/dL (NEGATIVE) Urine Occult Blood Negative (NEGATIVE) Urine Nitrite Negative (NEGATIVE) Urine Bilirubin Negative (NEGATIVE) Urine Urobilinogen Normalmg/dL (NORMAL) Urine Leukocyte Esterase Negative (NEGATIVE) Urine RBC 0-2/hpf (0-2) Urine WBC 0-5/hpf (0-5) Urine Epithelial Cells On/hpf (NONE-MOD) Urine Crystals None seen (NONE SEEN) Urine Bacteria None/hpf (NONE-FEW) Urine Hyaline Casts None/lpf (NONE) Urine Granular Casts None seen (NONE SEEN) Urine Waxy Casts None seen (NONE SEEN) Urine Red Blood Cell Casts None seen (NONE SEEN) Urine White Blood Cell Casts None seen (NONE SEEN) Urine Mucus None seen (None Seen) Urine Trichomonas None seen (NONE SEEN) Urine Yeast None (NONE SEEN) Urinalysis Comment None Urine Culture Reflexed Not indicated Lactic Acid Level 0.8mmol/L (0.4-2.0) Procalcitonin 0.03ng/mL (0.00-0.08) Activated Partial Thromboplast Time 29.9sec (22.8-33.0) Test 10/31/16 02:45 White Blood Count 3.3th/mm3 (3.8-10.1) Red Blood Count 4.36mil/mm3 (4.40-5.80) Hemoglobin 13.7g/dL (13.8-17.2) Hematocrit 40.3% (41.0-50.0) Mean Corpuscular Volume 92.4fL (81-100) Mean Corpuscular Hemoglobin 31.4pg (27.0-35.0) Mean Corpuscular Hemoglobin Concent 34.0% (32.0-37.0) Red Cell Distribution Width 12.8% (12.3-15.4) Platelet Count 142bil/L (150-400) Neutrophils (%) (Auto) 56.7% (40-74) Lymphocytes (%) (Auto) 29.7% (14-46) Monocytes (%) (Auto) 10.6% (4-12) Eosinophils (%) (Auto) 2.4% (0-5) Basophils (%) (Auto) 0.3% (0-3) Sodium Level 139mEq/L (134-144) Potassium Level 4.5mEq/L (3.5-5.2) Chloride Level 104mEq/L (97-108) Carbon Dioxide Level 24mmol/L (18-29) Blood Urea Nitrogen 14mg/dL (8-27) Creatinine 0.62mg/dL (0.76-1.27) Estimat Glomerular Filtration Rate 139mL/min (>59) Glucose Level 89mg/dL (60-99) Calcium Level 9.0mg/dL (8.5-10.1) Total Bilirubin 0.2mg/dL (0.0-1.2) Aspartate Amino Transf (AST/SGOT) 34U/L (0-50) Alanine Aminotransferase (ALT/SGPT) 27U/L (0-44) Alkaline Phosphatase 81U/L (25-160) Total Protein 6.7g/dL (6.4-8.4) Albumin 3.7g/dL (3.4-5.0) Discharge Medications Discharge Medications Amlodipine (Amlodipine) 10 Mg Tablet 10 MG PO DAILY (Reported) Apixaban (Eliquis) 5 Mg Tablet 10 MG PO Q12H Prescribed by: RUFUS CASTILLO DO Apixaban (Eliquis) 5 Mg Tablet 5 MG PO BID Prescribed by: RUFUS CASTILLO DO Apixaban (Eliquis) 5 Mg Tablet 5 MG PO BID Prescribed by: RUFUS CASTILLO DO Atenolol (Atenolol) 100 Mg Tablet 100 MG PO DAILY (Reported) Baclofen (Baclofen) 10 Mg Tablet 10 MG PO HS (Reported) Baclofen (Baclofen) 10 Mg Tablet 20 MG PO BIDBL (Reported) Calcium Carbonate/Vitamin D3 (Calcium 250+D Tablet) 1 Each Tablet 2 EACH PO BID (Reported) Chlorhexidine Gluconate (Chlorhexidine Gluconate) 473 Ml Mouthwash 1 DOSE S& SPIT DAILY (Reported) Cholecalciferol (Vitamin D3) (Vitamin D3) 2,000 Unit Capsule 2,000 UNIT PO DAILY (Reported) Desonide (Desonide Cream) 15 Gm Cream..g. 1 APPLIC TOP DAILY (Reported) Divalproex ER (Divalproex ER) 500 Mg Tab.er.24h 500 MG PO BID (Reported) Doxazosin Mesylate (Doxazosin Mesylate) 4 Mg Tablet 4 MG PO HS (Reported) Interferon Beta-1A (Avonex) 60 Mcg/1 Ml Syringe 125 MCG SC [id number] (Reported) Lisinopril (Lisinopril) 40 Mg Tablet 40 MG PO DAILY (Reported) Sennosides (Senna) 8.6 Mg Tablet 8.6 MG PO BID (Reported) As needed Sildenafil Citrate (Viagra) 100 Mg Tablet 100 MG PO UD PRN PRN for sexual activity (Reported) Tolnaftate (Tolnaftate) 1 Gm Powder 1 APPLIC TOP BID PRN PRN rash (Reported) Additional med instructions You have been started on a new medication Eliquis, prior to your discharge you have been cleared to received a free 1 month prescription trial of this medication which should cost you nothing up front. You have been given a one time dose of Eliquis 10mg to be taken tonight so that you are covered until you can pepper picker your full month prescription tomorrow from [facility]. Please pepper picker your prescription for this medication from your [facility] in [facility].You will need the following information to get your free month. Eliquis Free Month Trial Card Info ID Number - [id number] Rx BIN - [id number] RX PCN - [id number] Group ID # - [id number] Eliquis may or may not be covered by your [facility] insurance. Your [place] physician may decide to change you to another oral anticoagulant medication. You may continue all of your regular home medication except for your indomethacin. Please do not take indomethacin while you are on anticoagulation as this may increase your risk of spontaneous bleeding. You should discuss alternative gout treatments with your primary care physician Followup Plan Disposition: Home Follow-up plan Follow up with your [place] primary care doctor in 1-2 weeks to discuss this hospitalization. A copy of this hospitalization record will be sent to him for review. Discharge Diet: Heart Healthy Discharge Activity: Limited until seen by PCP Patient Instructions Please take all your medications as prescribed, including the Eliquis 10mg tonight. You need to take medication for anticoagulation for 3-6 months given your DVT. Your [facility] doctor may ultrasound your leg in 3 months to decide if you need to remain on anticoagulation longer. You do not currently have a leg infection but please call you doctor if you notice any signs of infection on your left leg abrasions. Keep track if you notice worsening pain at the sight of your abrasions or if you begin to develop fever or chills as this can be a sign of infection. Make sure to wash the abrasions twice a day with soap and water until they heal. Please call 911 if you develop sudden chest pain or shortness of breath as this can be a sign of a pulmonary emboli which can be a life threatening severe complication to having a DVT. Follow-up Provider: [facility] Follow-up with PCP in: 1 week Time spent Greater than 30 minutes was spent on discharge and greater than 50% of that time was spent on patient counseling and coordination of care. Attending Statement The patient was seen and examined together with Dr. Castillo on 10/31/2016 and I agree with the history, exam and plan as outlined in the note above. Rufus Castillo DO Oct 31, 2016 14:25 Smith Jiménez MD Nov 01, 2016 11:31
--- NOTE | 2016-10-31 14:57 | NUR ---
Discharge Pt was provided education on diagnosis, new meds, and future care. Pt understood all instructions. Tele was removed, IVs were removed. Pt had all personal belongings with him and was escorted down to his vehicle by a staff member. Pt had scripts in hand.
--- NOTE | 2016-10-31 16:22 | NUR ---
Social Work- Discharge Data: EMR reviewed. Pt is on day 3 of hospitalization. Pt to discharge today. Pt to discharge home via POV, no d/c needs identified. Assessment: Pt who is independent at baseline with ADLs and self-care Plan: Pt to discharge home via POV, no d/c needs identified. CATE Frausto
== END 2016-10-31 14:30 | disposition home or self-care (01) | DRG 300 ==
LOC: SED 10:39 → CCU 13:27 → PCC 15:23 → CCU 10-29 11:45 → PCC 10-29 15:41
PROVIDERS: ADMIT Internal Medicine; ATTEND Internal Medicine
DX: I82.422 Acute embolism and thrombosis of left iliac vein (principal); L97.229 Non-pressure chronic ulcer of left calf with unspecified severity; I82.412 Acute embolism and thrombosis of left femoral vein; S80.812A Abrasion, left lower leg, initial encounter; G35 Multiple sclerosis; I10 Essential (primary) hypertension; E78.5 Hyperlipidemia, unspecified; N40.0 Benign prostatic hyperplasia without lower urinary tract symptoms; W45.8XXA Other foreign body or object entering through skin, initial encounter; W22.09XA Striking against other stationary object, initial encounter; Z87.891 Personal history of nicotine dependence; Y93.89 Activity, other specified; Y92.007 Garden or yard of unspecified non-institutional (private) residence as the place of occurrence of the external cause; M1A.9XX0 Chronic gout, unspecified, without tophus (tophi); Y99.8 Other external cause status